=== PATIENT | male | born 1940 | race Caucasian/White ===

== ENCOUNTER 2017-12-08 09:26 | Emergency (ER) | payer MEDICARE, OTHER ==
[2017-12-08 09:41] VITALS: BP 131/76
--- NOTE | 2017-12-08 11:52 | ED ---
Adult Trauma - HPI Summary HPI Summary: This is scribe Lul Mayes documenting for attending Juan Ch MD. This patient is a 77 year old M presenting to [facility] with a chief complaint of hip pain from a fall since 07:40 this morning. The patient rates the pain 1/10 in severity. The patient can bear weight. I, Dr. Ch, personally performed the services described in this documentation as scribed in my presence, and it is both accurate and complete. - History of Current Complaint Chief Complaint: EDHipPelvisInjury Stated Complaint: FALL Time Seen by Provider: 12/08/17 11:25 Hx Obtained From: Patient Mechanism of Injury: Fall Ambulatory at the Scene: Yes Loss of Consciousness: no loss of consciousness Onset/Duration: Started Hours Ago - 07:40 this morning Onset of Pain: Immediate Onset Severity: Mild Current Severity: Mild Pain Intensity: 1 Pain Scale Used: 0-10 Numeric Location: Abdomen/Pelvis - R hip Aggravating Factor(s): Movement Alleviating Factor(s): Nothing - Allergy/Home Medications Allergies/Adverse Reactions: Allergies Allergy/AdvReac Type Severity Reaction Status Date / Time No Known Allergies Allergy Verified 12/08/17 09:41 Home Medications: Home Medications Atorvastatin* [Lipitor*] 20 mg PO DAILY 12/08/17 [History Confirmed 12/08/17] Ibuprofen TAB* [Motrin TAB* 600 MG] 600 mg PO Q8H PRN 12/08/17 [History Confirmed 12/08/17] Metoprolol Succinate XL TAB* [Toprol XL TAB*] 12.5 mg PO DAILY 12/08/17 [ History Confirmed 12/08/17] PMH/Surg Hx/FS Hx/Imm Hx Endocrine/Hematology History: Denies: Hx Diabetes Cardiovascular History: Denies: Hx Hypertension History: Denies: Hx Renal Disease - Cancer History Cancer Type, 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 GENERAL: Patient is a well-developed and nourished MALE who is lying comfortable in the stretcher. Patient is not in any acute respiratory distress. HEAD AND FACE: No signs of trauma. No ecchymosis, hematomas or skull depressions. No sinus tenderness. EYES: PERRLA, EOMI x 2, No injected conjunctiva, no nystagmus. EARS: Hearing grossly intact. Ear canals and tympanic membranes are within normal limits. MOUTH: Oropharynx within normal limits. NECK: Supple, trachea is midline, no adenopathy, no JVD, no carotid bruit, no c- spine tenderness, neck with full ROM. CHEST: Symmetric, no tenderness at palpation LUNGS: Clear to auscultation bilaterally. No wheezing or crackles. CVS: Regular rate and rhythm, S1 and S2 present, no murmurs or gallops appreciated. ABDOMEN: Soft, non-tender. No signs of distention. No rebound no guarding, and no masses palpated. Bowel sounds are normal. EXTREMITIES: FROM in all major joints, no edema, no cyanosis or clubbing. Tenderness to palpation at L hip. NEURO: Alert and oriented x 3. No acute neurological deficits. Speech is normal and follows commands. SKIN: Dry and warm Triage Information Reviewed: Yes Vital Signs On Initial Exam: Initial Vitals Temp Pulse Resp BP Pulse Ox 98 F 59 16 131/76 97 12/08/17 09:37 12/08/17 09:37 12/08/17 09:37 12/08/17 09:37 12/08/17 09:37 Vital Signs Reviewed: Yes Diagnostics - Vital Signs Vital Signs Temp Pulse Resp BP Pulse Ox 12/08/17 09:37 98 F 59 16 131/76 97 - Laboratory Lab Statement: Any lab studies that have been ordered have been reviewed, and results considered in the medical decision making process. - Radiology Hip/Pelvis X-Ray Radiology Interpretation Completed By: Radiologist - 12:19. No radiographic evidence for LEFT hip or pelvic fracture. ED Physician has reviewed this report. Adult Trauma Course/Dx - Course Assessment/Plan: This patient is a 77 year old male presenting to ED with L hip pain. He had a mechanical fall. Patient is able to ambulate with minimal pain. X -Ray of L hip and pelvis negative for fracture. Patient will be discharged home with ibuprofin and follow up with PCP. He was given instructions to return to the ED if the pain continues and has difficulty ambulating. - Diagnoses Provider Diagnoses: Hip pain Discharge - Sign-Out/Discharge Documenting (check all that apply): Patient Departure - D/C - Discharge Plan Condition: Stable Disposition: HOME Patient Education Materials: Hip Pain (ED) Referrals: Christina Tabares MD [Primary Care Provider] - 3 Days Additional Instructions: RETURN TO THE EMERGENCY DEPARTMENT FOR CHANGING OR WORSENING SYMPTOMS.
[2017-12-08] MEDS ORDERED: Ibuprofen TAB* 600 MG PO ONE (12:22)
--- NOTE | 2017-12-08 12:22 | RAD ---
Indication: LEFT hip pain post fall. Comparison: November 28, 2017 CT. Technique: AP pelvis and AP and frog-leg lateral views LEFT hip. Report: No evidence for LEFT proximal femur or pelvis fracture or pelvic joint diastases. The LEFT hip is normally located and demonstrates preserved joint space. Mild osteophytic lipping similar to the contralateral hip. Aortoiliac stent graft noted. Unremarkable soft tissue contours. IMPRESSION: #. No radiographic evidence for LEFT hip or pelvic fracture.
== END 2017-12-08 12:35 | disposition home or self-care (01) ==
LOC: ED 09:26
DX: M25.551 Pain in right hip (principal); M19.071 Primary osteoarthritis, right ankle and foot; I73.9 Peripheral vascular disease, unspecified
CPT/HCPCS: 99282; A9270-GY